=== PATIENT | male | born 1960 | race Caucasian/White ===

== ENCOUNTER → 2016-12-13 08:04 | Outpatient (CLI) | payer BC | END | disposition home or self-care (01) | LOC: D.US 08:04 | DX: K74.60 Unspecified cirrhosis of liver (principal) ==

== ENCOUNTER 2017-01-19 10:12 | Day surgery (SDC) | payer BC ==
[~2017-01-19] VITALS: Ht 180.3 cm; Wt 72.7 kg
--- NOTE | ~2017-01-19 | OP ---
PATIENT NAME: POLA MERAZ MEDICAL RECORD: [id number] :62 LOCATION:[facility] ADMISSION DATE: SURGEON: JAN SOARES DO OPERATION DATE: 01/19/17 PROCEDURE: Esophagogastroduodenoscopy. INDICATION: History of cirrhosis, screening for esophageal varices. SCOPE: [employer] video gastroscope. MEDICATIONS: Propofol 160 milligrams IV per anesthesia. ESTIMATED BLOOD LOSS: None. COMPLICATIONS: None. FINDINGS: Informed consent was given. The patient was made comfortable with the above medication. After reaching an adequate level of sedation by slow IV push, the patient was placed on his left side. The endoscope was then advanced under direct visualization through the mouth to the second portion of the duodenum. In the esophagus there was evidence of grade 2 to grade 3 esophageal varices present in the middle and distal esophagus. There was no bleeding stigmata associated with these varices. There was at least one scar from a previous banding visualized. No intervention was performed today. At the gastroesophageal junction there was mild evidence LA class A reflux induced esophagitis. The endoscope was advanced through the gastroesophageal junction and retroflexed to view the cardia where a small sliding hiatal hernia was present. Diffusely in the stomach there was presence of portal hypertensive gastropathy consisting of congestion and erythema involving the mucosa on the entire stomach. No biopsies were taken due to the risk of bleeding. The endoscope was advanced beyond the antrum and pylorus into the duodenum where the bulb and second portion of the duodenum appeared normal. The scope was then withdrawn from the patient. The patient tolerated the procedure well. There were no complications. IMPRESSIONS: 1. Grade 2 to grade 3 esophageal varices without bleeding stigmata. No bands were placed today. 2. LA class A reflux induced esophagitis. 3. Small sliding hiatal hernia. 4. Diffuse portal hypertensive gastropathy. PLAN/RECOMMENDATIONS: 1. Discharge home when recovery parameters are met. 2. Continue current diet which should consist of low sodium. 3. Continue current medications. 4. Consider proton pump inhibitor therapy versus H2 shaniqua for acid control if symptoms warrant. 5. Repeat esophagogastroduodenoscopy in six months for further variocele surveillance. 6. Follow up in gastroenterology clinic as scheduled and as needed. OPERATIVE REPORT [id number] POLA MERAZ JAN SOARES DO CC: [id number] DICTATION DATE: 01/19/17 1500 PRODUCT SPECIALIST: DM 01/20/17 1347 [facility] 01/19/17 [place] [id number] [place] [id number]
[2017-01-19] MEDS ORDERED: NADOLOL20 MG PO (12:32)
[2017-01-19] MEDS ORDERED: ALDACTONE100 MG PO (12:32)
[2017-01-19] MEDS ORDERED: XIFAXAN550 MG PO (12:32)
[2017-01-19 12:34] VITALS: BP 97/63; Ht 180.3 cm; Wt 72.7 kg
[2017-01-19 12:35] LABS: HEMATOCRIT 38.8 % (42.0-54.0); HEMOGLOBIN 13.6 g/dL (13.5-17.5); MCH 33.6 pg (26.0-34.0); MCHC 35.1 g/dL (31.0-37.0); MCV 95.8 fL (80.0-100.0); MEAN PLATELET VOLUME 12.5 fL (7.4-10.4); PLATELET COUNT 93 10x3/uL (130-400); RBC 4.05 10x6/uL (4.20-6.10); RDW 13.8 % (11.5-14.5)
[2017-01-19 12:49] LABS: CALCIUM 8.7 mg/dL (8.5-10.1); CARBON DIOXIDE 21.9 mmol/L (21.0-32.0); CREATININE - SERUM 1.1 mg/dL (0.6-1.3); POTASSIUM - SERUM 3.9 mmol/L (3.5-5.1)
[2017-01-19 13:11] LABS: PLATELET ESTIMATE DECREASED; WBC 5.8 10x3/uL (4.8-10.8)
--- NOTE | 2017-01-19 14:23 | NUR ---
1418 DISCHARGE INSTRUCTIONS GIVEN. NO PRESCRIPTIONS. ESCORTED OUT BY VOLUNTEER.
== END 2017-01-19 14:18 | disposition home or self-care (01) ==
LOC: D.OPS 10:12
PROVIDERS: Internal Medicine Gastroenterology
DX: K74.60 Unspecified cirrhosis of liver (principal); I85.10 Secondary esophageal varices without bleeding; K21.0 Gastro-esophageal reflux disease with esophagitis; K44.9 Diaphragmatic hernia without obstruction or gangrene; K76.6 Portal hypertension; K31.89 Other diseases of stomach and duodenum; Z01.812 Encounter for preprocedural laboratory examination

== ENCOUNTER 2017-06-21 08:15 | Day surgery (SDC) | payer BC ==
[~2017-06-21] VITALS: Ht 180.3 cm; Wt 70.5 kg
[~2017-06-21 08:15] MED LIST: ALDACTONE100 MG PO; NADOLOL20 MG PO; XIFAXAN550 MG PO
[2017-06-21 10:22] LABS: INR 1.2 (0.85-1.17); PROTIME 14.8 SECONDS (11.6-15.0)
[2017-06-21 10:23] LABS: APTT 39.8 SECONDS (22.8-39.4)
[2017-06-21 10:29] LABS: ALBUMIN 3.4 g/dL (3.4-5.0); ANION GAP 8.9 mmol/L (8-16); BILIRUBIN - DIRECT 0.19 mg/dL (0.00-0.30); BILIRUBIN - INDIRECT 0.61 mg/dL (0.00-1.00); BILIRUBIN - TOTAL 0.8 mg/dL (0.2-1.3); CALCIUM 9.1 mg/dL (8.5-10.1); CARBON DIOXIDE 25.7 mmol/L (21.0-32.0); CREATININE - SERUM 1.2 mg/dL (0.6-1.3); POTASSIUM - SERUM 4.6 mmol/L (3.5-5.1); PROTEIN - SERUM 6.9 g/dL (6.4-8.2)
[2017-06-21 11:10] LABS: BASOPHILS 0.7 % (0-2); EOSINOPHILS 6.8 % (0-7); HEMATOCRIT 41.1 % (42.0-54.0); HEMOGLOBIN 14.2 g/dL (13.5-17.5); IMMATURE GRANULOCYTES 0.2 % (0-5); LYMPHOCYTES 21.9 % (15-50); MCH 33.8 pg (26.0-34.0); MCHC 34.5 g/dL (31.0-37.0); MCV 97.9 fL (80.0-100.0); MEAN PLATELET VOLUME 12.5 fL (7.4-10.4); MONOCYTES 11.3 % (2-11); NEUTROPHILS 59.1 % (40-80); PLATELET COUNT 87 10x3/uL (130-400); RDW 13.9 % (11.5-14.5); WBC 5.5 10x3/uL (4.8-10.8)
[2017-06-21 11:29] VITALS: BP 108/61; Ht 180.3 cm; Wt 70.5 kg
[2017-06-21] MEDS ORDERED: ALDACTONE100 MG PO (11:35)
[2017-06-21] MEDS ORDERED: CORGARD20 MG PO (11:35)
[2017-06-21] MEDS ORDERED: XIFAXAN550 MG PO (11:36)
--- NOTE | 2017-06-21 14:25 | NUR ---
1423--5MLS VISCOUS LIDOCAINE GIVEN PO FOR PAIN, WILL CONTINUE TO MONITOR. DR SOARES AT BEDSIDE. JORJE AGUILAR
--- NOTE | 2017-06-21 16:53 | NUR ---
1550--MORPHINE 2MG GIVEN SIVP PER MD ORDERS, WILL CONTINUE TO MONITOR. JORJE AGUILAR
--- NOTE | 2017-06-21 16:57 | NUR ---
1309--CARAFATE 1G LIQUID GIVEN PO FOR ABDOMINAL PAIN, WILL CONTINUE TO MONITOR. JORJE AGUILAR
--- NOTE | 2017-06-21 17:15 | NUR ---
1350--MORPHINE 2MG GIVEN SIVP, WILL CONTINUE TO MONITOR. JORJE AGUILAR
--- NOTE | 2017-06-21 17:17 | NUR ---
7478--DR SOARES IN ROOM. IV DC'D, PT UP TO DRESS AT THIS TIME. JORJE AGUILAR 1510--DISCHARGE INSTRUCTIONS GIVEN, PT VERBALIZES UNDERSTANDING. PT OFF UNIT VIA WC. JORJE AGUILAR
--- NOTE | 2017-06-29 10:48 | OP ---
PATIENT NAME: POLA MERAZ MEDICAL RECORD: [id number] :62 LOCATION:[facility] ADMISSION DATE: SURGEON: JAN SOARES DO DATE OF OPERATION: 06/21/2017 PROCEDURE: EGD with variceal ligation. SCOPE: [employer] video gastroscope. MEDICATIONS: Propofol 300 mg IV per anesthesia. INDICATIONS FOR PROCEDURE: Cirrhosis and surveillance of esophageal varices. ESTIMATED BLOOD LOSS: Minimal. COMPLICATIONS: None. FINDINGS: Informed consent was given. The patient was made comfortable with the above medication. After reaching an adequate level of sedation by slow IV push, the patient was placed on his left side. The endoscope was then advanced under direct visualization through the mouth down to the second portion of the duodenum. In the esophagus, there were grade III esophageal varices without bleeding stigmata throughout the entire esophagus. There were 4 columns. Three bands were placed successfully. Of note, there were no bleeding stigmata present. The endoscope was advanced beyond the GE junction into the stomach and into the duodenum where there was evidence of portal hypertensive gastropathy and duodenopathy. There was evidence of reflux esophagitis as well. After the banding, the endoscope was withdrawn from the patient in its entirety. The patient tolerated the procedure well and there were no complications. IMPRESSIONS: 1. Grade III esophageal varices banded times 3. 2. Reflux esophagitis. 3. Portal hypertensive gastropathy and duodenopathy. PLAN AND RECOMMENDATIONS: 1. Discharge home when recovery parameters are met. 2. Change diet to liquid diet times 48 hours followed by a soft diet times 48 hours, then a regular diet. 3. Continue current medications. 4. Remain on low sodium diet. 5. Repeat EGD in 4 weeks with repeat banding if indicated. TRANSINT:[id number] Voice Confirmation ID: [id number] DOCUMENT ID: [id number] JAN SOARES DO at 1048 CC: [id number] DICTATION DATE: 06/21/17 1239 [place] TECHNICIAN: 06/21/17 1259 [facility] 06/21/17 [place] [id number] [place] [address]
== END 2017-06-21 15:10 | disposition home or self-care (01) ==
LOC: D.OPS 08:15
PROVIDERS: Anesthesiology
DX: I85.10 Secondary esophageal varices without bleeding (principal); K21.0 Gastro-esophageal reflux disease with esophagitis; K76.6 Portal hypertension; K31.89 Other diseases of stomach and duodenum; F17.200 Nicotine dependence, unspecified, uncomplicated; B19.20 Unspecified viral hepatitis C without hepatic coma; K74.60 Unspecified cirrhosis of liver; Z01.812 Encounter for preprocedural laboratory examination

== ENCOUNTER → 2017-06-21 08:28 | Outpatient (CLI) | payer BC ==
[~2017-06-21 08:28] MED LIST changes: +CORGARD20 MG PO
[2017-06-21 11:29] VITALS: BMI 21.6
== END | disposition home or self-care (01) ==
LOC: D.US 06-14 09:30 → D.LAB 06-14 09:30 → D.US 06-20 09:00 → D.LAB 06-20 10:00 → D.US 08:27
DX: K74.60 Unspecified cirrhosis of liver (principal)

== ENCOUNTER 2017-08-14 06:38 | Day surgery (SDC) | payer OTHER ==
[~2017-08-14] VITALS: Ht 180.3 cm; Wt 72.7 kg
--- NOTE | ~2017-08-14 | OP ---
PATIENT NAME: POLA MERAZ MEDICAL RECORD: [id number] :62 LOCATION:[facility] ADMISSION DATE: SURGEON: JAN SOARES DO DATE OF OPERATION: 08/14/2017 PROCEDURE: EGD with variceal banding. INDICATIONS FOR PROCEDURE: History of esophageal varices, last endoscopy on 06/21/2017 with 3 bands placed. SCOPE: Olympus video gastroscope. MEDICATIONS: Propofol 250 mg IV per anesthesia. ESTIMATED BLOOD LOSS: None. COMPLICATIONS: None. FINDINGS: Informed consent was given. The patient was made comfortable with the above medication. After reaching an adequate level of sedation by slow IV push, the patient was placed on his left side. The endoscope was advanced under direct visualization through the mouth to the second portion of the duodenum. In the mid and distal esophagus, there was evidence of grade II to grade III esophageal varices without bleeding stigmata. At the GE junction, there was some mild evidence of LA class A reflux induced esophagitis without ulcerations or erosions. The endoscope was advanced beyond the GE junction into the stomach and retroflexed view of the cardia, which appeared normal. Throughout the entire stomach and duodenum, there was evidence of portal hypertensive gastropathy and duodenopathy. There were no ulcers, erosions, or other lesions visualized. The endoscope was withdrawn and fitted with a [employer] Speedband. The endoscope was advanced back down to the distal esophagus and 2 columns were banded successfully. The endoscope was then withdrawn from the patient. The patient tolerated the procedure well and there were no complications. IMPRESSION: 1. Grade II to grade III esophageal varices in the mid and distal esophagus, banded times 2. 2. LA class A reflux-induced esophagitis. 3. Portal hypertensive gastropathy. 4. Portal hypertensive duodenopathy. PLAN AND RECOMMENDATIONS: 1. Discharge home when recovery parameters are met. 2. Continue current medications. 3. Liquid diet times 48 hours followed by soft diet times 48 hours, then regular. 4. Repeat EGD in 4-6 weeks for banding if indicated. TRANSINT:[id number] Voice Confirmation ID: [id number] DOCUMENT ID: [id number] OPERATIVE REPORT [id number] POLA MERAZ AJN SOARES DO at 0951 CC: [id number] DICTATION DATE: 08/14/17915 SCABBLER: 08/14/17 1047 [facility] 08/14/17 [place] [id number] [place] [address]
[2017-08-14 07:30] VITALS: BP 198/57; Ht 180.3 cm; Wt 72.7 kg
[2017-08-14 07:31] LABS: BASOPHILS 0.4 % (0-2); EOSINOPHILS 6.4 % (0-7); HEMATOCRIT 38.8 % (42.0-54.0); HEMOGLOBIN 13.4 g/dL (13.5-17.5); IMMATURE GRANULOCYTES 0.2 % (0-5); LYMPHOCYTES 22.1 % (15-50); MCH 33.3 pg (26.0-34.0); MCHC 34.5 g/dL (31.0-37.0); MCV 96.5 fL (80.0-100.0); MEAN PLATELET VOLUME 12.2 fL (7.4-10.4); MONOCYTES 11.9 % (2-11); PLATELET COUNT 91 10x3/uL (130-400); RBC 4.02 10x6/uL (4.20-6.10); RDW 13.7 % (11.5-14.5); WBC 5.6 10x3/uL (4.8-10.8)
[2017-08-14 07:36] LABS: APTT 39.6 SECONDS (22.8-39.4); INR 1.3 (0.85-1.17); PROTIME 15.7 SECONDS (11.6-15.0)
[2017-08-14 07:42] LABS: ALBUMIN 3.3 g/dL (3.4-5.0); ANION GAP 11.6 mmol/L (8-16); BILIRUBIN - TOTAL 0.74 mg/dL (0.2-1.3); CALCIUM 8.9 mg/dL (8.5-10.1); CARBON DIOXIDE 25.5 mmol/L (21.0-32.0); CREATININE - SERUM 1.2 mg/dL (0.6-1.3); POTASSIUM - SERUM 4.1 mmol/L (3.5-5.1); PROTEIN - SERUM 6.4 g/dL (6.4-8.2)
== END 2017-08-14 10:40 | disposition home or self-care (01) ==
LOC: D.OPS 06:38
PROVIDERS: Anesthesiology
DX: I85.10 Secondary esophageal varices without bleeding (principal); K74.60 Unspecified cirrhosis of liver; K72.90 Hepatic failure, unspecified without coma; F17.200 Nicotine dependence, unspecified, uncomplicated; Z01.812 Encounter for preprocedural laboratory examination

== ENCOUNTER 2017-09-27 11:49 | Day surgery (SDC) | payer OTHER ==
[~2017-09-27] VITALS: Ht 180.3 cm; Wt 72.7 kg
--- NOTE | ~2017-09-27 | OP ---
PATIENT NAME: POLA MERAZ MEDICAL RECORD: [id number] :62 LOCATION:[facility] ADMISSION DATE: SURGEON: JAN SOARES DO DATE OF OPERATION: 09/27/2017 PROCEDURE: EGD. INDICATION FOR PROCEDURE: History of esophageal varices with previous banding. His last EGD was performed on 08/14/2017. SCOPE: Olympus video gastroscope. MEDICATIONS: Propofol 200 mg IV per anesthesia. ESTIMATED BLOOD LOSS: None. COMPLICATIONS: None. FINDINGS: Informed consent was given. The patient was made comfortable with the above medication. After reaching an adequate level of sedation by slow IV push, the patient was placed on his left side. The endoscope was advanced under direct visualization through the mouth to the second portion of the duodenum. Throughout the entire esophagus, there were grade I to grade II esophageal varices with subtle progression to the grade II, the more distal the endoscope was advanced into the esophagus. There were previous scars from prior episodes of banding. There was no bleeding stigmata associated with these varices on today's examination. At the GE junction, there was evidence of moderate LA class A reflux-induced esophagitis. The endoscope was advanced beyond the GE junction into the stomach and retroflexed to view the cardia, which appeared normal. Throughout the entire stomach, there was moderate to severe portal hypertensive gastropathy with some sites that appeared like they could be hemorrhagic at any time. There was some very mild oozing of blood with use of the water jet on the mucosal surface. No biopsies were taken of the stomach due to the risk for bleeding. The endoscope was advanced beyond the pylorus into the duodenum where there was evidence of erythema and granularity consistent with duodenitis. There were a few shallow superficial ulcerations present in the duodenal bulb. The second portion of the duodenum appeared normal other than the portal hypertensive duodenopathy. The endoscope was withdrawn from the patient. The patient tolerated the procedure well. There were no complications. IMPRESSION: 1. Grade I to grade II esophageal varices without bleeding stigmata. 2. LA class A reflux-induced esophagitis. 3. Portal hypertensive gastropathy. 4. Duodenitis. 5. Duodenal ulcers. PLAN AND RECOMMENDATIONS: 1. Discharge home when recovery parameters are met. 2. Continue current diet and current medications. 3. We will give a prescription for PPI to be taken for 30 days. 4. Recommend checking H. pylori antibodies and treating if positive. 5. Recall EGD in 1 year for continued esophageal varices surveillance. OPERATIVE REPORT [id number] POLA MERAZ TRANSINT:[id number] Voice Confirmation ID: [id number] DOCUMENT ID: [id number] JAN SOARES DO at 1135 CC: [id number] DICTATION DATE: 09/27/17 1419 EARLY MORNING: 09/27/17 1434 [facility] 09/27/[address] [address]
[2017-09-27 12:38] LABS: BASOPHILS 0.4 % (0-2); EOSINOPHILS 6.7 % (0-7); HEMATOCRIT 38.9 % (42.0-54.0); HEMOGLOBIN 13.5 g/dL (13.5-17.5); IMMATURE GRANULOCYTES 0.2 % (0-5); MCH 33.7 pg (26.0-34.0); MCHC 34.7 g/dL (31.0-37.0); MEAN PLATELET VOLUME 12.1 fL (7.4-10.4); MONOCYTES 10.1 % (2-11); NEUTROPHILS 58.6 % (40-80); PLATELET COUNT 83 10x3/uL (130-400); RBC 4.01 10x6/uL (4.20-6.10); RDW 13.9 % (11.5-14.5)
[2017-09-27 12:46] LABS: APTT 39.7 SECONDS (22.8-39.4)
[2017-09-27 13:02] VITALS: BP 126/46; Ht 180.3 cm; Wt 72.7 kg
[2017-09-27 13:08] LABS: ANION GAP 12.1 mmol/L (8-16); CALCIUM 8.8 mg/dL (8.5-10.1); CARBON DIOXIDE 24.4 mmol/L (21.0-32.0); CREATININE - SERUM 1.3 mg/dL (0.6-1.3); POTASSIUM - SERUM 4.5 mmol/L (3.5-5.1)
[2017-09-27 13:28] LABS: INR 1.36 (0.85-1.17); PROTIME 16.3 SECONDS (11.6-15.0)
[2017-09-27 15:28] LABS: HELICOBACTER PYLORI IGG NEGATIVE (NEGATIVE)
== END 2017-09-27 15:10 | disposition home or self-care (01) ==
LOC: D.OPS 11:49
PROVIDERS: Anesthesiology; Internal Medicine Gastroenterology
DX: I85.00 Esophageal varices without bleeding (principal); K21.0 Gastro-esophageal reflux disease with esophagitis; K76.6 Portal hypertension; K31.89 Other diseases of stomach and duodenum; K29.80 Duodenitis without bleeding; K26.9 Duodenal ulcer, unspecified as acute or chronic, without hemorrhage or perforation; F17.200 Nicotine dependence, unspecified, uncomplicated; Z01.812 Encounter for preprocedural laboratory examination

== ENCOUNTER → 2017-12-11 08:29 | Outpatient (CLI) | payer OTHER ==
[2017-12-11 08:57] LABS: BASOPHILS 0.4 % (0-2); EOSINOPHILS 6.9 % (0-7); HEMATOCRIT 38.9 % (42.0-54.0); HEMOGLOBIN 13.5 g/dL (13.5-17.5); IMMATURE GRANULOCYTES 0.2 % (0-5); LYMPHOCYTES 18.8 % (15-50); MCH 33.3 pg (26.0-34.0); MCHC 34.7 g/dL (31.0-37.0); MCV 95.8 fL (80.0-100.0); MEAN PLATELET VOLUME 12.4 fL (7.4-10.4); MONOCYTES 12.1 % (2-11); NEUTROPHILS 61.6 % (40-80); PLATELET COUNT 97 10x3/uL (130-400); RBC 4.06 10x6/uL (4.20-6.10); RDW 14.2 % (11.5-14.5); WBC 4.6 10x3/uL (4.8-10.8)
[2017-12-11 09:17] LABS: INR 1.22 (0.85-1.17)
[2017-12-11 09:19] LABS: ALBUMIN 3.3 g/dL (3.4-5.0); ANION GAP 10.7 mmol/L (8-16); BILIRUBIN - DIRECT 0.21 mg/dL (0.00-0.30); BILIRUBIN - INDIRECT 0.5 mg/dL (0.00-1.00); BILIRUBIN - TOTAL 0.71 mg/dL (0.2-1.3); CALCIUM 9.2 mg/dL (8.5-10.1); CARBON DIOXIDE 26.8 mmol/L (21.0-32.0); CREATININE - SERUM 1.2 mg/dL (0.6-1.3); POTASSIUM - SERUM 4.5 mmol/L (3.5-5.1); PROTEIN - SERUM 7.1 g/dL (6.4-8.2)
[2017-12-11 09:42] LABS: PLATELET ESTIMATE NORMAL
== END | disposition home or self-care (01) ==
LOC: D.US 08:29
PROVIDERS: Internal Medicine Gastroenterology
DX: K74.60 Unspecified cirrhosis of liver (principal); K72.90 Hepatic failure, unspecified without coma; I85.00 Esophageal varices without bleeding

== ENCOUNTER 2017-12-14 12:00 | Outpatient (CLI) | payer OTHER | END 2017-12-14 23:59 | disposition home or self-care (01) | LOC: D.LAB 12:00 | DX: K74.60 Unspecified cirrhosis of liver (principal); I85.00 Esophageal varices without bleeding; K72.90 Hepatic failure, unspecified without coma ==

== ENCOUNTER 2019-04-15 09:02 | Day surgery (SDC) | payer OTHER ==
[~2019-04-15] VITALS: Ht 180.3 cm; Wt 96.8 kg
[2019-04-15 09:51] LABS: HEMATOCRIT 38.3 % (42.0-54.0); MCH 33.2 pg (26.0-34.0); MCHC 33.9 g/dL (31.0-37.0); MCV 97.7 fL (80.0-100.0); MEAN PLATELET VOLUME 12.7 fL (7.4-10.4); RBC 3.92 10x6/uL (4.20-6.10); RDW 14.5 % (11.5-14.5)
[2019-04-15 09:57] LABS: INR 1.24 (0.85-1.17); PROTIME 15.1 SECONDS (11.6-15.0)
[2019-04-15 09:58] LABS: APTT 38.9 SECONDS (22.8-39.4)
[2019-04-15 10:10] LABS: ALBUMIN 3.3 g/dL (3.4-5.0); ANION GAP 10.4 mmol/L (8-16); BILIRUBIN - TOTAL 0.89 mg/dL (0.2-1.3); CALCIUM 8.9 mg/dL (8.5-10.1); CARBON DIOXIDE 28.8 mmol/L (21.0-32.0); CREATININE - SERUM 1.1 mg/dL (0.6-1.3); POTASSIUM - SERUM 4.2 mmol/L (3.5-5.1); PROTEIN - SERUM 6.9 g/dL (6.4-8.2)
[2019-04-15 10:21] VITALS: BP 104/63; Ht 180.3 cm; Wt 96.8 kg
--- NOTE | 2019-04-15 11:30 | NUR ---
PT DC INSTRUCTIONS REVIEWED AT THIS TIME, PT VERBALIZES UNDERSTANDING. PT IV REMOVED AT THIS TIME, INTACT, NO REDNESS OR SWELLING NOTED AT SITE.
--- NOTE | 2019-04-15 11:40 | NUR ---
PT LEAVING OPS AT THIS TIME VIA WC. NO ACUTE DISTRESS NOTED.
--- NOTE | 2019-04-17 09:54 | OP ---
PATIENT NAME: POLA MERAZ MEDICAL RECORD: [id number] :62 LOCATION:[facility] ADMISSION DATE: SURGEON: JAN SOARES DO DATE OF OPERATION: 04/15/2019 PROCEDURE: EGD with biopsies. INDICATIONS FOR PROCEDURE: Esophageal varices surveillance. The patient's last endoscopy was 09/27/2017. SCOPE: Olympus video gastroscope. MEDICATIONS: Propofol 120 mg IV per anesthesia. ESTIMATED BLOOD LOSS: Minimal. COMPLICATIONS: None. FINDINGS: Informed consent was given. The patient was made comfortable with the above medication. After reaching an adequate level of sedation by slow IV push, the patient was placed on his left side. The endoscope was advanced under direct visualization through the mouth to the second portion of the duodenum with ease. In the esophagus, there were small grade I esophageal varices without stigmata of bleeding. At the GE junction, there were minor changes consistent with LA class A reflux-induced esophagitis. The endoscope was advanced beyond the GE junction into the stomach and retroflexed to view the cardia and fundus. There was no hiatal hernia visualized. Throughout the stomach, there was diffuse portal hypertensive gastropathy. A single biopsy was taken from the antrum to submit for histopathology and to rule out the presence of H. pylori. The endoscope was advanced beyond the pylorus into the duodenum, which appeared normal to the second portion. The endoscope was then withdrawn from the patient. The patient tolerated the procedure well and there were no complications. IMPRESSION: 1. Grade I esophageal varices. 2. LA class A reflux-induced esophagitis. 3. Portal hypertensive gastropathy. PLAN AND RECOMMENDATIONS: 1. Discharge home when recovery parameters are met. 2. Follow up biopsy specimen results. 3. Continue current diet. 4. Reflux precautions. 5. Continue current medications. 6. Recall surveillance EGD in 1 year. TRANSINT:[id number] Voice Confirmation ID: [id number] DOCUMENT ID: [id number] OPERATIVE REPORT [id number] POLA MERAZ JAN SOARES DO at 0954 CC: [id number] DICTATION DATE: 04/15/19 1052 MANDARIN TEACHER: 04/15/19 1105 [facility] 04/15/19 [place] [address]
== END 2019-04-15 11:40 | disposition home or self-care (01) ==
LOC: D.OPS 09:02
PROVIDERS: Anesthesiology; ATTEND Internal Medicine Gastroenterology
DX: I85.00 Esophageal varices without bleeding (principal); K21.0 Gastro-esophageal reflux disease with esophagitis; K76.6 Portal hypertension; K31.89 Other diseases of stomach and duodenum

== ENCOUNTER → 2019-08-29 08:51 | Outpatient (CLI) | payer OTHER ==
[2019-04-15 10:21] VITALS: BMI 29.7
[2019-08-29 09:43] LABS: BASOPHILS 0.1 % (0-2); EOSINOPHILS 4.2 % (0-7); HEMATOCRIT 37.7 % (42.0-54.0); HEMOGLOBIN 13.1 g/dL (13.5-17.5); IMMATURE GRANULOCYTES 0.1 % (0-5); LYMPHOCYTES 15.2 % (15-50); MCH 33.3 pg (26.0-34.0); MCHC 34.7 g/dL (31.0-37.0); MCV 95.9 fL (80.0-100.0); MEAN PLATELET VOLUME 12.3 fL (7.4-10.4); MONOCYTES 13.9 % (2-11); NEUTROPHILS 66.5 % (40-80); PLATELET COUNT 94 10x3/uL (130-400); RBC 3.93 10x6/uL (4.20-6.10); RDW 14.9 % (11.5-14.5); WBC 6.7 10x3/uL (4.8-10.8)
[2019-08-29 09:53] LABS: INR 1.28 (0.85-1.17); PROTIME 15.9 SECONDS (11.6-15.0)
[2019-08-29 09:58] LABS: ALBUMIN 3.1 g/dL (3.4-5.0); ANION GAP 10.8 mmol/L (8-16); BILIRUBIN - DIRECT 0.28 mg/dL (0.00-0.30); BILIRUBIN - INDIRECT 0.56 mg/dL (0.00-1.00); BILIRUBIN - TOTAL 0.84 mg/dL (0.2-1.3); CALCIUM 8.5 mg/dL (8.5-10.1); CREATININE - SERUM 1.2 mg/dL (0.6-1.3); PLATELET ESTIMATE DECREASED; POTASSIUM - SERUM 4.8 mmol/L (3.5-5.1); PROTEIN - SERUM 6.9 g/dL (6.4-8.2)
== END | disposition home or self-care (01) ==
LOC: D.LAB 08:51 → D.US 10:00
PROVIDERS: ATTEND Internal Medicine Gastroenterology
DX: K74.69 Other cirrhosis of liver (principal)

== ENCOUNTER → 2019-09-09 08:31 | Outpatient (CLI) | payer OTHER ==
[2019-04-15 10:21] VITALS: BMI 29.7
== END | disposition home or self-care (01) ==
LOC: D.MRI 08:31
PROVIDERS: ATTEND Internal Medicine Gastroenterology
DX: R93.819 Abnormal radiologic findings on diagnostic imaging of unspecified testicle (principal); K76.9 Liver disease, unspecified

== ENCOUNTER → 2020-01-17 10:32 | Outpatient (CLI) | payer OTHER ==
[2019-04-15 10:21] VITALS: BMI 29.7
[2020-01-17 11:43] LABS: BASOPHILS 0.3 % (0-2); EOSINOPHILS 4.3 % (0-7); HEMATOCRIT 36.9 % (42.0-54.0); HEMOGLOBIN 12.2 g/dL (13.5-17.5); IMMATURE GRANULOCYTES 0.3 % (0-5); LYMPHOCYTES 9.8 % (15-50); MCH 32.9 pg (26.0-34.0); MCHC 33.1 g/dL (31.0-37.0); MCV 99.5 fL (80.0-100.0); MEAN PLATELET VOLUME 11.7 fL (7.4-10.4); MONOCYTES 11.5 % (2-11); NEUTROPHILS 73.8 % (40-80); RBC 3.71 10x6/uL (4.20-6.10); RDW 14.4 % (11.5-14.5); WBC 6.5 10x3/uL (4.8-10.8)
[2020-01-17 11:44] LABS: PLATELET COUNT 156 10x3/uL (130-400)
[2020-01-17 11:58] LABS: INR 1.07 (0.85-1.17); PROTIME 13.8 SECONDS (11.6-15.0)
[2020-01-17 12:04] LABS: ALBUMIN 2.8 g/dL (3.4-5.0); ANION GAP 10.4 mmol/L (8-16); BILIRUBIN - DIRECT 0.34 mg/dL (0.00-0.30); BILIRUBIN - INDIRECT 0.49 mg/dL (0.00-1.00); BILIRUBIN - TOTAL 0.83 mg/dL (0.2-1.3); CALCIUM 8.7 mg/dL (8.5-10.1); CREATININE - SERUM 1.1 mg/dL (0.6-1.3); POTASSIUM - SERUM 4.4 mmol/L (3.5-5.1); PROTEIN - SERUM 7.3 g/dL (6.4-8.2)
== END | disposition home or self-care (01) ==
LOC: D.CT 09-11 09:00
PROVIDERS: ATTEND Internal Medicine Gastroenterology
DX: K74.60 Unspecified cirrhosis of liver (principal); K72.90 Hepatic failure, unspecified without coma; K76.9 Liver disease, unspecified

== ENCOUNTER 2020-02-24 13:58 | Inpatient (IN) | payer OTHER ==
[~2020-02-24] VITALS: Ht 180.3 cm; Wt 72.6 kg
--- NOTE | 2020-02-24 03:30 | NUR ---
UP TO BATHROOM, AD CARLOS. PT REPORTS PAIN TO LEFT AC IV WHEN FLUSHED, DCd WITH CATH INTACT. 18G IV RESTARTED TO RIGHT UPPER ARM, 1ST ATTEMPT. NO FURTHER NEEDS VOICED, CTM.
[2020-02-24 14:41] LABS: BASOPHILS 0.3 % (0-2); EOSINOPHILS 1.6 % (0-7); HEMATOCRIT 35.9 % (42.0-54.0); HEMOGLOBIN 12.1 g/dL (13.5-17.5); IMMATURE GRANULOCYTES 0.1 % (0-5); LYMPHOCYTES 8.1 % (15-50); MCH 33.5 pg (26.0-34.0); MCHC 33.7 g/dL (31.0-37.0); MCV 99.4 fL (80.0-100.0); MEAN PLATELET VOLUME 12.3 fL (7.4-10.4); MONOCYTES 9.2 % (2-11); NEUTROPHILS 80.7 % (40-80); PLATELET COUNT 145 10x3/uL (130-400); RBC 3.61 10x6/uL (4.20-6.10); RDW 15.6 % (11.5-14.5); WBC 7.6 10x3/uL (4.8-10.8)
[2020-02-24 14:54] LABS: APTT 35.4 SECONDS (22.8-39.4); INR 1.23 (0.85-1.17); PROTIME 15.4 SECONDS (11.6-15.0)
[2020-02-24 15:04] LABS: ANION GAP 12.5 mmol/L (8-16); CALCIUM 8.9 mg/dL (8.5-10.1); CARBON DIOXIDE 24.8 mmol/L (21.0-32.0); CREATININE - SERUM 1.1 mg/dL (0.6-1.3); POTASSIUM - SERUM 4.3 mmol/L (3.5-5.1)
[2020-02-24 15:17] LABS: ALBUMIN 2.7 g/dL (3.4-5.0); BILIRUBIN - TOTAL 2.63 mg/dL (0.2-1.3); TROPONIN-I 0.023 ng/mL (0.000-0.060)
[2020-02-24 17:35] LABS: BILIRUBIN NEGATIVE (NEGATIVE); KETONE SMALL mg/dL (NEGATIVE); NITRITE NEGATIVE (NEGATIVE)
[2020-02-25] VITALS (14 sets, daily range): BP systolic 115–141; BP diastolic 42–84; Ht 180.3 cm; Wt 72.6 kg
--- NOTE | 2020-02-25 02:53 | NUR ---
I have reviewed this patient and I concur with the Shift Assessment completed by the Licensed Practical Nurse today this shift.
[2020-02-25 07:06] LABS: ALBUMIN 2.7 g/dL (3.4-5.0); ANION GAP 10.4 mmol/L (8-16); BILIRUBIN - TOTAL 2.28 mg/dL (0.2-1.3); CALCIUM 8.8 mg/dL (8.5-10.1); CARBON DIOXIDE 25.6 mmol/L (21.0-32.0); CREATININE - SERUM 1.3 mg/dL (0.6-1.3); MAGNESIUM - SERUM 1.9 mg/dL (1.8-2.4); PROTEIN - SERUM 7.3 g/dL (6.4-8.2)
--- NOTE | 2020-02-25 07:20 | NUR ---
AWAKE AND ALERT. ORIENTED X3. REQUESTED AND GIVEN 2MG MORPHINE SLOW IVP FOR C/O ABDOMINAL PAIN LEVEL 10. WILL MONITOR.
[2020-02-25 08:01] LABS: BASOPHILS 0.3 % (0-2); EOSINOPHILS 3.4 % (0-7); HEMATOCRIT 35.8 % (42.0-54.0); HEMOGLOBIN 12.1 g/dL (13.5-17.5); IMMATURE GRANULOCYTES 0.3 % (0-5); LYMPHOCYTES 12.5 % (15-50); MCH 33.3 pg (26.0-34.0); MCHC 33.8 g/dL (31.0-37.0); MCV 98.6 fL (80.0-100.0); MEAN PLATELET VOLUME 12.2 fL (7.4-10.4); MONOCYTES 12.1 % (2-11); NEUTROPHILS 71.4 % (40-80); PLATELET COUNT 149 10x3/uL (130-400); RBC 3.63 10x6/uL (4.20-6.10); RDW 15.5 % (11.5-14.5); WBC 6.2 10x3/uL (4.8-10.8)
--- NOTE | 2020-02-25 09:03 | NUR ---
GONE FOR HIS CT GUIDED THORACENTESIS.
--- NOTE | 2020-02-25 10:10 | NUR ---
BACK FROM THE CT.
--- NOTE | 2020-02-25 10:19 | NUR ---
LEFT SIDE OF THE ADB IS CLEAN, NO LEAKING FRO THE PUNCTURE SITE.
--- NOTE | 2020-02-25 11:12 | NUR ---
NO DRAINAGE TO THE LEFT LOWER ABD SITE. HIS IS AT THE BEDSIDE. HE ARE MONITORING HIS VS. THE CALL LIGHT IS WITHIN REACH.
--- NOTE | 2020-02-25 17:03 | NUR ---
iv removed from right upper arm. paperwork gone over with, questions answered. taken to the er via wheelchair.
== END 2020-02-25 17:05 | disposition home or self-care (01) | DRG 433 ==
LOC: D.ER 13:58 → D.MS 17:44
PROVIDERS: Family Medicine; Specialist; ADMIT Family Medicine; ATTEND Family Medicine
PROC: 0W9G3ZZ Drainage of Peritoneal Cavity, Percutaneous Approach (ICD-10-PCS; principal; 2020-02-25 09:00)
DX: K74.60 Unspecified cirrhosis of liver (principal); R18.8 Other ascites; C22.8 Malignant neoplasm of liver, primary, unspecified as to type; K75.9 Inflammatory liver disease, unspecified; D64.9 Anemia, unspecified; K72.10 Chronic hepatic failure without coma